=== PATIENT | female | born 2000 | race Caucasian/White ===

== ENCOUNTER 2020-04-29 18:50 | Emergency (ER) | payer OTHER ==
[~2020-04-29 18:50] MED LIST: diphenhydrAMINE 50MG/ML VIAL (J1200) As Ordered ONE; diphenhydrAMINE 50MG/ML VIAL (J1200) ONE; methylPREDNISolone 125MG 2ML VIAL As Ordered ONE; methylPREDNISolone 125MG 2ML VIAL ONE
[2020-06-14 01:02] LABS: BASO % 0.4 % (0.0-1.0); EOS # 0.2 10^3/uL (0.0-0.5); HEMATOCRIT 39.9 % (36.0-47.0); HEMOGLOBIN 13.6 g/dl (12.0-15.5); LYMPH # 2.3 10^3/uL (1.5-5.0); LYMPH % 26.6 % (24.0-44.0); MEAN CORPUSCULAR HEMOGLOBIN 30.6 pg (27.0-33.0); MEAN CORPUSCULAR HGB CONC 34.1 g/dl (32.0-36.5); MEAN CORPUSCULAR VOLUME 89.7 fl (80.0-96.0); MONO # 0.4 10^3/uL (0.0-0.8); MONO % 5.2 % (0.0-5.0); NEUTROPHILS # 5.6 10^3/uL (1.5-8.5); NEUTROPHILS % 65.4 % (36.0-66.0); PLATELET COUNT, AUTOMATED 306 10^3/uL (150-450); RED BLOOD COUNT 4.45 10^6/uL (4.00-5.40); WHITE BLOOD COUNT 8.5 10^3/uL (4.0-10.0)
[2020-07-23 07:49] LABS: HCG, SERUM QUALITATIVE NEGATIVE (NEGATIVE)
[2020-07-23 07:50] LABS: BLOOD UREA NITROGEN 12 MG/DL (7-18); CALCIUM LEVEL 8.8 MG/DL (8.5-10.1); CARBON DIOXIDE LEVEL 25 MEQ/L (21-32); CHLORIDE LEVEL 110 MEQ/L (98-107); CREATININE FOR GFR 0.78 MG/DL (0.55-1.30); GLUCOSE, FASTING 92 MG/DL (70-100); SODIUM LEVEL 142 MEQ/L (136-145)
== END 2020-04-29 19:40 | disposition home or self-care (01) ==
LOC: M ED 18:50
DX: T63.441A Toxic effect of venom of bees, accidental (unintentional), initial encounter (principal); X58.XXXA Exposure to other specified factors, initial encounter; Y92.89 Other specified places as the place of occurrence of the external cause; R13.10 Dysphagia, unspecified; R07.89 Other chest pain; Z91.018 Allergy to other foods; Z91.030 Bee allergy status
CPT/HCPCS: 80048; 84703; 85025; 96374; 96375; 99284; J1200; J2930

== ENCOUNTER 2021-10-30 20:34 | Outpatient (CLI) | payer OTHER ==
[~2021-10-30] VITALS: Ht 165.1 cm; Wt 81.4 kg
[2021-10-30 20:54] VITALS: BP 119/70
[2021-10-30] MEDS ORDERED: PRENTAB9 PO (20:59)
[2021-10-30] MEDS ORDERED: COLA100C5 PO (20:59)
[2021-10-30] MEDS ORDERED: HOME MED LIST COMPLETE! XX SCH (21:00)
== END 2021-10-30 22:30 | disposition home or self-care (01) ==
LOC: M LDO 20:34
PROVIDERS: ATTEND Obstetrics & Gynecology
DX: O36.8130 Decreased fetal movements, third trimester, not applicable or unspecified (principal); Z3A.29 29 weeks gestation of pregnancy
CPT/HCPCS: 59025; G0378; G0463

== ENCOUNTER 2021-12-04 23:03 | Outpatient (CLI) | payer OTHER ==
[~2021-12-04] VITALS: Ht 165.1 cm; Wt 85.0 kg
[~2021-12-04 23:03] MED LIST changes: +COLA100C5 PO; +PRENTAB9 PO; -diphenhydrAMINE 50MG/ML VIAL (J1200) As Ordered ONE; -diphenhydrAMINE 50MG/ML VIAL (J1200) ONE; -methylPREDNISolone 125MG 2ML VIAL As Ordered ONE; -methylPREDNISolone 125MG 2ML VIAL ONE
[2021-12-04 23:40] VITALS: BP 131/79
== END 2021-12-05 00:15 | disposition home or self-care (01) ==
LOC: M LDO 23:03
PROVIDERS: ATTEND Obstetrics & Gynecology
DX: O26.893 Other specified pregnancy related conditions, third trimester (principal); Z3A.34 34 weeks gestation of pregnancy; R51.9 Headache, unspecified
CPT/HCPCS: 59025; G0463

== ENCOUNTER 2022-01-20 15:04 | Outpatient (CLI) | payer OTHER ==
[~2022-01-20] VITALS: Ht 165.1 cm; Wt 92.9 kg
[2022-01-20] MEDS ORDERED: HOME MED LIST COMPLETE! XX SCH (15:20)
[2022-01-20 15:34] VITALS: BP 140/96
[2022-01-20 15:35] VITALS: BP 140/97
[2022-01-20 16:56] VITALS: BP 132/81
[2022-01-20 16:57] LABS: APPEARANCE, URINE HAZY (CLEAR); BACTERIA, URINE AUTO 1+ (NEGATIVE); BILIRUBIN, URINE AUTO NEGATIVE (NEGATIVE); BLOOD, URINE BLOOD NEGATIVE (NEGATIVE); COLOR, URINE YELLOW (YELLOW); GLUCOSE, URINE (UA) AUTO NEGATIVE (NEGATIVE); KETONE, URINE AUTO NEGATIVE (NEGATIVE); LEUKOCYTE ESTERASE, URINE AUTO NEGATIVE (NEGATIVE); MUCUS, URINE SMALL (NEGATIVE); NITRITE, URINE AUTO NEGATIVE (NEGATIVE); PROTEIN, URINE AUTO 1+ mg/dL (NEGATIVE); RBC, URINE AUTO 1 /HPF (0-3); SPECIFIC GRAVITY URINE AUTO 1.012 (1.002-1.035); SQUAMOUS EPITHELIAL CELL UR AU 1 /HPF (0-6); UROBILINOGEN, URINE AUTO 0.2 mg/dL (0.0-2.0); WBC, URINE AUTO 2 /HPF (0-3)
[2022-01-20 17:14] LABS: TOTAL PROTEIN,RANDOM URINE 29.3 MG/DL (0.0-12.0)
[2022-01-20 17:14] LABS: HEMATOCRIT 36.8 % (36.0-47.0); HEMOGLOBIN 12.4 g/dl (12.0-15.5); MEAN CORPUSCULAR HEMOGLOBIN 31.1 pg (27.0-33.0); MEAN CORPUSCULAR HGB CONC 33.7 g/dl (32.0-36.5); MEAN CORPUSCULAR VOLUME 92.2 fl (80.0-96.0); PLATELET COUNT, AUTOMATED 226 10^3/uL (150-450); RED BLOOD COUNT 3.99 10^6/uL (4.00-5.40); WHITE BLOOD COUNT 10.3 10^3/uL (4.0-10.0)
[2022-01-20 17:28] LABS: ALT/SGPT 15 U/L (12-78); BILIRUBIN,TOTAL 0.2 MG/DL (0.2-1.0); CREATININE FOR GFR 0.61 MG/DL (0.55-1.30); GLOMERULAR FILTRATION RATE > 60.0 (>60); LDH LACTATE DEHYDROGENASE 162 U/L (84-246); URIC ACID 4.6 MG/DL (2.6-6.0)
[2022-01-20 17:45] VITALS: BP 140/89
== END 2022-01-20 18:41 | disposition home or self-care (01) ==
LOC: M LDO 15:04
PROVIDERS: ATTEND Obstetrics & Gynecology
DX: O47.1 False labor at or after 37 completed weeks of gestation (principal); Z3A.40 40 weeks gestation of pregnancy; O48.0 Post-term pregnancy
CPT/HCPCS: 36415; 59025; 76815; 81001; 82247; 82565; 82570; 83615; 84156; 84450; 84460; 84550; 85027; G0378; G0463

== ENCOUNTER 2022-01-20 22:22 | Inpatient (IN) | payer OTHER ==
[~2022-01-20] VITALS: Ht 165.1 cm; Wt 92.6 kg
[2022-01-20] MEDS ORDERED: HOME MED LIST COMPLETE! XX SCH (22:35)
[2022-01-20 22:37] VITALS: BP 164/97
[2022-01-20 22:53] VITALS: BP 173/101
[2022-01-20 23:19] VITALS: BP 137/82
[2022-01-20 23:28] VITALS: BP 130/74
[2022-01-21] VITALS (72 sets, daily range): BP systolic 113–219; BP diastolic 63–143
[2022-01-21 00:19] LABS: HEMATOCRIT 35.8 % (36.0-47.0); HEMOGLOBIN 12.3 g/dl (12.0-15.5); MEAN CORPUSCULAR HEMOGLOBIN 31.7 pg (27.0-33.0); MEAN CORPUSCULAR HGB CONC 34.4 g/dl (32.0-36.5); MEAN CORPUSCULAR VOLUME 92.3 fl (80.0-96.0); PLATELET COUNT, AUTOMATED 221 10^3/uL (150-450); RED BLOOD COUNT 3.88 10^6/uL (4.00-5.40); WHITE BLOOD COUNT 12.1 10^3/uL (4.0-10.0)
[2022-01-21] MEDS ORDERED: LACTATED RINGER'S 1000 ML IV ONE (00:30)
[2022-01-21] MEDS ORDERED: OXYTOCIN INJ 10 UNITS/ML VIAL (J2590) IV PRN (00:30)
[2022-01-21] MEDS ORDERED: OXYTOCIN DRIP 30 UNITS in IV 1 EA IV PRN ×4 (00:30)
[2022-01-21] MEDS ORDERED: TRANEXAMIC ACID INJection 1,000 MG in NS 100 ML IV PRN (00:30)
[2022-01-21] MEDS ORDERED: METHYLERGONOVINE MALEATE 0.2 MG/ML VIAL (J2210) IM PRN (00:30)
[2022-01-21] MEDS ORDERED: FENTANYL 2MCG/ML ROPIVACAINE 0.2% IN 0.9% NACL 100ML IVBAG As Ordered ONE (00:35)
[2022-01-21] MEDS ORDERED: OXYTOCIN DRIP 30 UNITS in IV 1 EA IV SCH (02:00)
[2022-01-21] MEDS ORDERED: NALOXONE INJ 0.4MG/1ML VIAL (J2310 PER 1MG) IV PRN (03:05)
[2022-01-21] MEDS ORDERED: ePHEDrine SULFATE 25 MG/5 ML(5MG/ML) SYRINGE IV PRN (03:05)
[2022-01-21] MEDS ORDERED: REFRIGERATOR IV KEYS XX PRN (03:05)
[2022-01-21] MEDS ORDERED: diphenhydrAMINE 50MG/ML VIAL (J1200) IV PRN (03:05)
[2022-01-21] MEDS ORDERED: LACTATED RINGER'S 1000 ML IV PRN (03:05)
[2022-01-21] MEDS ORDERED: ONDANSETRON 4MG/2ML VIAL IV PRN ×2 (03:05→18:10)
[2022-01-21] MEDS ORDERED: EPIDURAL COMMENT XX SCH (03:05)
[2022-01-21] MEDS ORDERED: EPIDURAL/PCA KEYS XX PRN (03:05)
[2022-01-21] MEDS: LR 1,000 ML IV SCH ×2 (03:20→14:17)
[2022-01-21] MEDS: FENTANYL/ROPIVACAINE/NACL BAG 100 ML EPIDURAL SCH ×3 (03:21→14:45)
[2022-01-21] MEDS: PRENATAL VITAMINS CHEWABLE TABLET PO SCH (09:00)
[2022-01-21] MEDS: MIRALAX *UNIT DOSE* 17GM PACKET PO SCH (09:00)
[2022-01-21 17:04] LABS: CORD GAS ABE A -10.6; CORD GAS ABE V -7.8; CORD GAS HCO3 A 19.2 MEQ/L; CORD GAS HCO3 V 18.6 MEQ/L; CORD GAS O2 SAT A 36.5 %; CORD GAS PCO2 A 58.6 mmHg; CORD GAS PCO2 V 40.9 mmHg; CORD GAS PH A 7.133 UNITS; CORD GAS PH V 7.275 UNITS; CORD GAS PO2 A 21.8 mmHg; CORD GAS PO2 V 26.2 mmHg; CORD GAS SBC V 17.3 MEQ/L; CORD GAS TCO2 V 19.8 MEQ/L
[2022-01-21] MEDS ORDERED: LIDOCAINE 1% MDV 20ML VIAL As Ordered ONE (17:24)
[2022-01-21] MEDS ORDERED: LIDOCAINE 1% MDV 20ML VIAL SC ONE (17:25)
[2022-01-21] MEDS ORDERED: cefoTEtan DISODIUM 2 GM in D5W MINI-BAG PLUS 50 ML IV ONE (18:10)
[2022-01-21] MEDS ORDERED: MEASLES,MUMPS,RUBELLA VACCINE INJ (MMR-II) (90707) SC SCH (18:10)
[2022-01-21] MEDS ORDERED: PROMETHAZINE 25 MG TAB PO PRN (18:10)
[2022-01-21] MEDS ORDERED: LR 1,000 ML IV SCH (18:10)
[2022-01-21] MEDS ORDERED: RHOGAM 300 MCG (1500 IU) INJ (J2790) IM SCH (18:10)
[2022-01-21] MEDS: ACETAMINOPHEN 500 MG TAB PO SCH ×2 (18:30→23:16)
[2022-01-21] MEDS: DOCUSATE SODIUM 100MG CAPSULE PO SCH (20:38)
[2022-01-21] MEDS: DIBUCAINE 1% OINTMENT 30GM TOP PRN (20:38)
[2022-01-21] MEDS ORDERED: PRENATAL VITAMINS CHEWABLE TABLET PO SCH (21:00)
[2022-01-21] MEDS: IBUPROFEN 800 MG TAB PO SCH (22:06)
[2022-01-22 05:28] VITALS: BP 115/76
[2022-01-22] MEDS: ACETAMINOPHEN 500 MG TAB PO SCH ×4 (06:33→23:31)
[2022-01-22] MEDS: IBUPROFEN 800 MG TAB PO SCH ×3 (06:33→21:03)
[2022-01-22 07:53] LABS: HEMATOCRIT 28.8 % (36.0-47.0); MEAN CORPUSCULAR HEMOGLOBIN 31.5 pg (27.0-33.0); MEAN CORPUSCULAR HGB CONC 33.7 g/dl (32.0-36.5); MEAN CORPUSCULAR VOLUME 93.5 fl (80.0-96.0); PLATELET COUNT, AUTOMATED 182 10^3/uL (150-450); RED BLOOD COUNT 3.08 10^6/uL (4.00-5.40); WHITE BLOOD COUNT 14.1 10^3/uL (4.0-10.0)
[2022-01-22 07:54] LABS: HEMOGLOBIN 9.7 g/dl (12.0-15.5)
[2022-01-22] MEDS: MIRALAX *UNIT DOSE* 17GM PACKET PO SCH (09:25)
[2022-01-22] MEDS: PRENATAL VITAMINS CHEWABLE TABLET PO SCH (09:25)
[2022-01-22] MEDS: DOCUSATE SODIUM 100MG CAPSULE PO SCH ×2 (09:25→21:03)
[2022-01-22] MEDS: DIBUCAINE 1% OINTMENT 30GM TOP PRN (11:37)
[2022-01-22 18:00] VITALS: BP 143/78
[2022-01-23] MEDS: IBUPROFEN 800 MG TAB PO SCH (05:54)
[2022-01-23] MEDS: ACETAMINOPHEN 500 MG TAB PO SCH (05:54)
[2022-01-23 06:00] VITALS: BP 131/72
[2022-01-23] MEDS: DOCUSATE SODIUM 100MG CAPSULE PO SCH (08:40)
[2022-01-23] MEDS: MIRALAX *UNIT DOSE* 17GM PACKET PO SCH (08:40)
[2022-01-23] MEDS: PRENATAL VITAMINS CHEWABLE TABLET PO SCH (08:40)
== END 2022-01-23 12:45 | disposition home or self-care (01) | DRG 807 ==
LOC: M LDO 22:22 → M LDI 23:15 → M OBS 01-21 20:30
PROVIDERS: ADMIT Obstetrics & Gynecology; ATTEND Obstetrics & Gynecology
PROC: 10E0XZZ Delivery of Products of Conception, External Approach (ICD-10-PCS; principal; 2022-01-21)
PROC: 0KQM0ZZ Repair Perineum Muscle, Open Approach (ICD-10-PCS; 2022-01-21)
PROC: 10907ZC Drainage of Amniotic Fluid, Therapeutic from Products of Conception, Via Natural or Artificial Opening (ICD-10-PCS; 2022-01-21)
DX: O48.0 Post-term pregnancy (principal); Z37.0 Single live birth; Z3A.41 41 weeks gestation of pregnancy; O13.4 Gestational [pregnancy-induced] hypertension without significant proteinuria, complicating childbirth; O70.1 Second degree perineal laceration during delivery